=== PATIENT | female | born 1955 | race Caucasian/White ===

== ENCOUNTER 2021-07-14 02:36 | Outpatient (CLI) | payer MEDICARE | END 2021-07-14 02:37 | disposition critical access hospital (66) | LOC: EMS 02:36 | DX: T23.251A Burn of second degree of right palm, initial encounter (principal); X15.0XXA Contact with hot stove (kitchen), initial encounter; Y92.009 Unspecified place in unspecified non-institutional (private) residence as the place of occurrence of the external cause | CPT/HCPCS: A0425; A0429 ==

== ENCOUNTER 2021-07-14 02:41 | Emergency (ER) | payer MEDICARE ==
[2021-07-14 02:53] VITALS: BP 126/80
[2021-07-14] MEDS ORDERED: COD LIVER OIL/ZINC OXIDE 113 GM TUBE TOP STA (03:06)
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
[2021-07-14] MEDS: ACETAMINOPHEN 325 MG TABLET PO STA (03:15)
[2021-07-14] MEDS: IBUPROFEN 800 MG TABLET PO STA (03:15)
== END 2021-07-14 03:46 | disposition home or self-care (01) ==
LOC: ED 02:41
DX: T23.251A Burn of second degree of right palm, initial encounter (principal); W01.198A Fall on same level from slipping, tripping and stumbling with subsequent striking against other object, initial encounter
CPT/HCPCS: 99282; 99283; A9270